=== PATIENT | female | born 1955 | race Caucasian/White ===

== ENCOUNTER 2017-08-05 20:30 | Outpatient (CLI) | payer MEDICARE | END 2017-08-05 20:31 | disposition home or self-care (01) | LOC: SLEEPLAB 20:30 | PROVIDERS: ATTEND Internal Medicine | DX: G47.33 Obstructive sleep apnea (adult) (pediatric) (principal); G47.419 Narcolepsy without cataplexy | CPT/HCPCS: 95810 ==

== ENCOUNTER 2017-08-09 07:11 | Day surgery (SDC) | payer MEDICARE ==
[2017-08-08 14:15] VITALS: BMI 25.0
--- NOTE | 2017-08-09 06:23 | HP ---
DATE OF ADMISSION: 08/09/2017 HISTORY OF PRESENT ILLNESS: This is a 61-year-old female with chronic acid reflux for man y years. She does take medicines on a regular basis. She last several years. The patient do es complain of some reflux symptoms occurs off and on. She complained of indigestion and also heart burn. There has been no dysphagia. The patient comes for an EGD because of chronic acid reflux and underwent colonoscopy for colon cancer screening. ALLERGIES: None. SOCIAL HISTORY: The patient is a chronic smoker. Smokes 2 packets of cigarettes per day. Does not drink alcohol. MEDICAL ILLNESSES: 1. COPD. 2. Chronic acid reflux. 3. IBS. 4. Depression, chronic anxiety. 5. Guerrero's mucosa. 6. Sleep apnea. 7. Spondylosis and chronic low back pain. PHYSICAL EXAMINATION: GENERAL: She is thin built, appears comfortable. VITAL SIGNS: Pulse is 70, blood pressure 130/70. HEENT: Conjunctivae clear. CARDIOVASCULAR: First and second heart sounds normal. LUNGS: Clear to auscultation. ABDOMEN: Soft to palpate. No organomegaly. No tenderness. No masses. EXTREMITIES: Reveal no edema. ADMITTING DIAGNOSES: 1. Chronic acid reflux - Guerrero's mucosa. 2. Colon cancer screening. PLAN: EGD and colonoscopy.
[2017-08-09] MEDS ORDERED: Lidocaine 1% PF 5 ML VIAL ONE (09:26)
--- NOTE | 2017-08-09 12:02 | OP ---
DATE OF PROCEDURE: 08/09/2017 SURGEON: Luis E Cam M.D. OPERATIVE PROCEDURE: Esophagogastroduodenoscopy with biopsy. PREOPERATIVE DIAGNOSES: A 61-year-old female with chronic acid reflux for several years. The patient had been taking Nexium over the last several years. She also continues to smoke 2 pack s of cigarettes a day. The patient's biopsy did show Guerrero's mucosa. The patient is undergoing e sophagogastroduodenoscopy. POSTOPERATIVE DIAGNOSES: 1. Esophageal mucosa appears normal except for irregular Z-line and mucosal edema. 2. Hiatus hernia. 3. Small linear ulcer over the gastric antrum. 4. Otherwise, the exam was normal. PROCEDURE IN DETAIL: The patient was placed on her left lateral position and was given sedation by Anesthesia Department. A Pentax video gastroscope under direct vision was passed down the oropharyn x, past the gastroesophageal junction, into the stomach and subsequently descending duodenum. The e sophageal mucosa actually appeared normal throughout the esophagus. There is no esophagitis seen. However, the Z-line was irregular and somewhat erythematous. Biopsies were obtained from the area. The fundus, cardia, gastric body, no pathology seen. She has a hiatus hernia. Over the gastric an trum, the patient was found to have a linear small ulcer. The duodenal bulb and descending duodenum , no pathology. Biopsies were obtained from the gastric antrum and gastric body. The stomach was d ecompressed and the scope removed.
--- NOTE | 2017-08-09 18:30 | OP ---
DATE OF PROCEDURE: 08/09/2017 OPERATIVE PROCEDURE: Colonoscopy with biopsy. PREOPERATIVE DIAGNOSIS: A 61-year-old female undergoing colonoscopy for colon cancer scre ening. POSTOPERATIVE DIAGNOSES: 1. Diffuse colonic diverticulosis all the way to the cecum from the sigmoid colon. 2. Retained fecal material which made the exam difficult. 3. Hemorrhoids. 4. Sessile descending colonic polyp. PROCEDURE NOTE: The patient was placed on her left lateral position and [facility] A rectal exam was performed before the scope was advanced into the rectum. No le sions were felt on rectal exam. A Pentax video colonoscope was introduced into the rectum and advan mick all the way to the cecum. The exam was difficult because of the poor prep. The patient had poc kets of retained stool intermittently throuth the colon. Also, the mucosa was coated with thick sto ol. Water was irrigated and washed out. The ileocecal area, cecum, ascending colon, hepatic flexur e shows diverticulosis. The transverse colon, splenic flexure, descending colon again showed scatte red diverticulosis. A sessile broad-based polyp over the descending colon was biopsied. The sigmoi d colon again shows right-sided diverticula. The findings of indicative of chronic back surge ry. Rectal vault does have a lot of stool and could not be completely washed out. Rectum does show hemorrhoids. DISCHARGE PLANNING: This is a 61-year-old female who came in for an EGD and a colonoscopy . The EGD showed irregular Z-line, a linear small ulcer in the gastric antrum. The colonoscopy mary lou wed diffuse colonic diverticular disease, retained stool, and also a sessile polyp descending colon. DISCHARGE RECOMMENDATIONS: 1. The patient advised to continue Nexium as before. 2. The patient advised to stop smoking completely. 3. High-fiber diet. 4. Metamucil. She was also advised to call me if she develops abdominal pain, hematochezia, or fev er. In the absence of any of her symptoms, she is going to back to me in 2 weeks.
== END 2017-08-09 10:58 | disposition home or self-care (01) ==
LOC: SDC 07:11
PROVIDERS: ATTEND Internal Medicine Gastroenterology
PROC: 0DBM8ZX Excision of Descending Colon, Via Natural or Artificial Opening Endoscopic, Diagnostic (ICD-10-PCS; principal; 2017-08-09)
PROC: 0DB58ZX Excision of Esophagus, Via Natural or Artificial Opening Endoscopic, Diagnostic (ICD-10-PCS; 2017-08-09)
DX: Z12.11 Encounter for screening for malignant neoplasm of colon (principal); D12.4 Benign neoplasm of descending colon; K57.30 Diverticulosis of large intestine without perforation or abscess without bleeding; K64.9 Unspecified hemorrhoids; K31.9 Disease of stomach and duodenum, unspecified; R13.10 Dysphagia, unspecified; K21.0 Gastro-esophageal reflux disease with esophagitis; K44.9 Diaphragmatic hernia without obstruction or gangrene; F17.210 Nicotine dependence, cigarettes, uncomplicated; J44.9 Chronic obstructive pulmonary disease, unspecified; G43.909 Migraine, unspecified, not intractable, without status migrainosus; M19.90 Unspecified osteoarthritis, unspecified site; Z79.899 Other long term (current) drug therapy; Z90.710 Acquired absence of both cervix and uterus; Z98.890 Other specified postprocedural states
CPT/HCPCS: 88305; 88312; 88313; J2001

== ENCOUNTER 2017-08-15 11:01 | Outpatient (CLI) | payer MEDICARE ==
--- NOTE | 2017-08-31 12:09 | MMO ---
SCREENING MAMMOGRAPHY: DATE: 08/15/17. COMPARISON: 07/12/14, 01/22/10, 06/22/08. HISTORY: Screening mammogram. FINDINGS: The patient's mammogram is interpreted with the assistance of computer-aided detection. There are scattered fibroglandular densities present. There is no dominant mass, architectural distortion, and no concerning microcalcifications. A focal area of asymmetry is noted in the retroareolar region on the right, unchanged when compared to the pr ior imaging. IMPRESSION: BI-RADS 2 - benign findings. Annual screening mammography recommended. POS: [place]
== END 2017-08-15 11:02 | disposition home or self-care (01) ==
LOC: MAMMO 11:01
PROVIDERS: ATTEND Internal Medicine
DX: Z12.31 Encounter for screening mammogram for malignant neoplasm of breast (principal)
CPT/HCPCS: 77067; G0202

== ENCOUNTER 2017-08-29 12:44 | Outpatient (CLI) | payer MEDICARE ==
--- NOTE | 2017-08-29 16:27 | BD ---
DEXA BONE DENSITY SCAN: DATE: 08/29/17. COMPARISON: None. HISTORY: A 61-year-old postmenopausal female undergoing screening for osteoporosis. FINDINGS: Lumbar Spine: BMD (g/cm2) L1 0.810 T-Score: -1.6 L2 1.791 T-Score: -2.2 L3 0.845 T-Score: -2.2 L4 0.793 T-Score: -2.4 L1-L4 0.811 T-Score: -2.3 Femoral Neck: 0.613 T-Score: -2.1 Total Femur: 0.737 T-Score: -1.7 The FRAX-WHO fracture risk assessment tool is not reported secondary to the following provided histo ry: prior hip or vertebral fracture, treated for osteoporosis. Impression: There is diffuse osteopenia within the lumbar spine and interrogated femur, correlating with a moder ately increased risk for fracture. POS: [place]
== END 2017-08-29 12:45 | disposition home or self-care (01) ==
LOC: MAMMO 12:44
PROVIDERS: ATTEND Internal Medicine
DX: Z13.820 Encounter for screening for osteoporosis (principal); M85.88 Other specified disorders of bone density and structure, other site; Z78.0 Asymptomatic menopausal state
CPT/HCPCS: 77080

== ENCOUNTER 2018-03-30 08:22 | Outpatient (CLI) | payer MEDICARE ==
--- NOTE | 2018-03-30 09:51 | CT ---
LOW DOSE CT SCAN OF THE CHEST FOR LUNG CANCER SCREENING: HISTORY: Cigarette smoker with 30-year history of smoking. FINDINGS: Emphysematous changes are seen in the lung [place] bilaterally. There is crowding in the apices, righ t greater than left. Tiny calcified lung nodules are present bilaterally, consistent with old granul omatous disease. No suspicious lung nodules are seen. No pleural or pericardial effusions are identified. No pleural calcifications are noted. There are coronary and aortic calcifications without evidence of aneurysmal dilatation of the thoracic aorta. There are mild degenerative changes in the spine. There are postop changes in the lower cervical spi ne. IMPRESSION: Lung RADS category I - negative. RECOMMENDATION: Continued annual screening with low dose CT in 12 months. POS: [place]
== END 2018-03-30 08:23 | disposition home or self-care (01) ==
LOC: CT 08:22
PROVIDERS: ATTEND Internal Medicine
DX: F17.210 Nicotine dependence, cigarettes, uncomplicated (principal)
CPT/HCPCS: G0297

== ENCOUNTER 2018-11-01 10:08 | Day surgery (SDC) | payer MEDICARE ==
[2018-10-31 17:19] VITALS: BMI 24.9
[2018-11-01] MEDS ORDERED: PROPOFOL 200 MG/20 ML VIAL ONE (16:25)
[2018-11-01] MEDS ORDERED: Lidocaine 1% PF 5 ML VIAL ONE (16:25)
--- NOTE | 2018-11-01 20:05 | OP ---
DATE OF PROCEDURE: 11/01/2018 PREOPERATIVE DIAGNOSES: A 62-year-old female with abdominal pain, dyspepsia, early satiety, abdominal fullness, underwent EGD. POSTOPERATIVE DIAGNOSES: 1. Irregular Z-line, previous biopsy showing Guerrero mucosa. 2. Normal fundus and cardia and gastric body. 3. Erosive antral gastritis. 4. Normal duodenum. OPERATIVE PROCEDURE: Esophagogastroduodenoscopy with biopsy. DESCRIPTION OF PROCEDURE: The patient was placed on her left lateral position and was given sedation by Anesthesia Department. A Pentax video gastroscope under direct vision was passed down the oropharynx past the GE junction into the stomach and subsequently into the descending duodenum. The esophageal mucosa appeared normal throughout. The patient has irregular Z-line. No biopsies taken. In the fundus and cardia, no pathology seen. In the gastric body, no pathology seen. The gastric antrum showed erosive gastritis. Biopsies obtained from the gastric antrum and gastric body. In the duodenal bulb, descending duodenum, no pathology seen. The stomach decompressed and the scope removed. DISCHARGE PLANNING: This is a 62-year-old female came for EGD because of abdominal discomfort, abdominal bloating, early satiety, loss of appetite. The EGD showed erosive antral gastritis. Biopsies were obtained from the antrum. DISCHARGE RECOMMENDATIONS: 1. Continue medications as before. 2. Await gastric biopsy. If the biopsy shows Helicobacter pylori, treat accordingly. Job ID: [id number]
== END 2018-11-01 13:35 | disposition home or self-care (01) ==
LOC: SDC 10:08 → MERGE 12:33 → SDC 13:35
PROVIDERS: ATTEND Internal Medicine Gastroenterology
PROC: 0DB78ZX Excision of Stomach, Pylorus, Via Natural or Artificial Opening Endoscopic, Diagnostic (ICD-10-PCS; principal; 2018-11-01)
DX: K29.60 Other gastritis without bleeding (principal); Z79.899 Other long term (current) drug therapy
CPT/HCPCS: 88305; 88312; J2001; J2704